=== PATIENT | female | born 1985 | race Caucasian/White ===

== ENCOUNTER 2016-09-02 10:23 | Inpatient (IN) | payer OTHER ==
[~2016-09-02 10:23] MED LIST: OXYTOCIN IN LR 500 ML IV ONE
[2016-09-02] MEDS ORDERED: LIDOCAINE 1% (PRES FREE) 30 ML VIAL ONE (11:10)
[2016-09-02] MEDS ORDERED: MINERAL OIL 25 ML BOT ONE (11:10)
[2016-09-02] MEDS ORDERED: PUMP TUBING ONE (11:10)
[2016-09-02] MEDS ORDERED: LIDOCAINE Viscous 2% 15 ML UDCUP ONE (11:10)
[2016-09-02] MEDS ORDERED: SODIUM CHLORIDE 0.9% FLUSH 10 ML ONE (11:10)
[2016-09-02] MEDS ORDERED: OXYTOCIN 10 UNITS/ML VIAL ONE (11:10)
[2016-09-02] MEDS ORDERED: IV START KIT ONE (11:10)
[2016-09-02] MEDS ORDERED: OXYTOCIN IN LR 500 ML IV ONE (11:11)
[2016-09-02] MEDS: LACTATED RINGERS 1,000 ML IV PRN ×2 (11:33→12:03)
[2016-09-02] MEDS ORDERED: EPIDURAL PUMP SET ONE (11:44)
[2016-09-02] MEDS ORDERED: FENTANYL/ROPIVACAINE EPIDURAL 250 ML EP ONE (11:45)
[2016-09-02 11:47] LABS: HEMATOCRIT 39.2 % (37.0-47.0); HEMOGLOBIN 13.3 gm/l (12.0-16.0); MEAN CELL VOLUME 87.7 fl (81.0-99.0); MEAN CORPUSCULAR HEMOGLOBIN 29.8 pg (27.0-31.0); MEAN CORPUSCULAR HGB CONC 33.9 g/dl (33.0-37.0); RED CELL DISTRIBUTION WIDTH 13.3 % (11.5-14.5)
[2016-09-02] MEDS ORDERED: EPIDURAL PROCEDURE TRAY ONE (12:24)
[2016-09-02] MEDS ORDERED: METOCLOPRAMIDE HCL 5 MG/ML 2ML VIAL IV PRN (12:30)
[2016-09-02] MEDS ORDERED: EPHEDRINE SULFATE 50 MG/ML 1ML VIAL IV PRN (12:30)
[2016-09-02] MEDS ORDERED: FENTANYL/ROPIVACAINE EPIDURAL 250 ML EP SCH (12:30)
[2016-09-02] MEDS ORDERED: ONDANSETRON 4 MG/2ML 2 ML VIAL IV PRN (12:30)
[2016-09-02] MEDS ORDERED: DIPHENHYDRAMINE HCL 50 MG/1 ML VIAL IV PRN (12:30)
[2016-09-02] MEDS ORDERED: LACTATED RINGERS 1,000 ML IV SCH (12:30)
[2016-09-02] MEDS ORDERED: NALBUPHINE HCL 20 MG/ML AMP IV PRN (12:30)
[2016-09-02] MEDS ORDERED: SODIUM CHLORIDE 0.9% 500 ML IV PRN (12:30)
[2016-09-02] MEDS ORDERED: NALOXONE HCL 0.4 MG/ML VIAL IV PRN (12:30)
[2016-09-02] MEDS ORDERED: LACTATED RINGERS 500 ML IV PRN (12:30)
[2016-09-02 13:12] VITALS: BMI 34.0
[2016-09-02] MEDS ORDERED: LIDOCAINE 1% (PRES FREE) 30 ML VIAL IF ONE (15:36)
[2016-09-02] MEDS ORDERED: MINERAL OIL 25 ML BOT TP ONE (15:36)
[2016-09-02] MEDS ORDERED: LANOLIN 50 APPLIC/7G TUBE TP PRN (16:31)
[2016-09-02] MEDS ORDERED: BENZOCAINE/MENTHOL 60 APPLIC/BOT TP PRN (16:31)
[2016-09-02] MEDS ORDERED: OXYCODONE HCL 5 MG TABLET PO PRN (16:31)
[2016-09-02] MEDS ORDERED: CALCIUM CARBONATE 500 MG TAB.CHEW PO PRN (16:31)
[2016-09-02] MEDS ORDERED: HYDROCODONE/ACETAMINOPHEN 5/325MG TABLET PO PRN (16:31)
[2016-09-02] MEDS ORDERED: MAGNESIUM HYDROXIDE 30 ML UDCUP PO PRN (16:31)
[2016-09-02] MEDS ORDERED: DOCUSATE SODIUM 100 MG CAPSULE PO PRN (16:31)
[2016-09-02] MEDS: IBUPROFEN 800 MG TABLET PO SCH ×2 (17:12→23:23)
[2016-09-03] MEDS: IBUPROFEN 800 MG TABLET PO SCH ×2 (06:39→14:22)
[2016-09-03 07:06] LABS: HEMATOCRIT 34.4 % (37.0-47.0); HEMOGLOBIN 11.4 gm/l (12.0-16.0)
--- NOTE | 2016-09-03 12:57 | PCMDEL ---
Delivery Note - Labor 1st stage (hr/min):: 1030--1522 4 hrs 52 minutes 2nd stage (hr/min):: 1522--1546 24 minutes 3rd stage (hr/min):: 1546--1558 12 minutes Total (hr/min):: 5 hours 28 minutes - Delivery Delivery (Date): 09/02/16 Delivery (Time): 15:46 Infant Gender: Male Weight: 4.7 kg Position: OA Umbilical Cord: 3 Vessel Delayed Cord Clamping:: > 3 min 1 Minute Total: 9 5 Minute Total: 9 Placenta:: normal and intact EBL:: 300mls Perineum:: 2nd degree perineal laceration Suture:: 3-0 vicryl Anesthesia/Meds:: epidural and 1% lidocaine plain x 16mls Length ROM:: 3 hours
--- NOTE | 2016-09-03 13:06 | PDOC39B ---
ADMIT DATE: 09/02/16 DISCHARGE DATE: ADMISSION DIAGNOSES: 30 yo at 39w6d, active labor DISCHARGE DIAGNOSES: 30 yo at 39w6d PROCEDURES: 2nd degree perineal repair HISTORY OF PRESENT ILLNESS: 30 year old at 39 weeks 6 days presenting with painful regular contractions. Contractions started the night before about 1130pm. Continued through the night and was found to be 4cm in the office at 8 am. She wanted to walk and returned at about 1030 and was found to be 4.5-5cm and painful contractions every 2-5 minutes. She was admitted to the hospital for anticipated delivery. She elected for an epidural and was placed and was comfortable. AROM of clear fluid and she progressed nicely to deliver a viable male infant over a 2nd degree perineal laceration without complication DELIVERY INFORMATION: Delivery Date/Time: 09/02/16 @ 15:46 Weight: 4.706 kg Totals: 1 minute , 5 minute Lacerations: 2nd degree perineal repaired Repair: 3-0 vicryl Anesthesia/Meds: Epidural and Lidocaine 1% Blood Loss: 300mls HOSPITAL COURSE: The patient did well PP without complications and was anxious to go home. By day of discharge the patient is ambulating, eating, voiding, and passing flatus without difficulty. Pain is controlled and lochia is appropriate. She is . - Physical Exam Vital Signs: Temp Pulse Resp BP Pulse Ox 97.9 F 78 18 123/60 09/03/16 03:45 09/03/16 03:45 09/03/16 03:45 09/03/16 03:45 General: Afebrile Psych/Mental Status: Mood/Affect Appropriate, Judgment/Insight Intact, Bonding Well Neurological: Grossly Intact, Alert, Oriented x 4 Lungs: Clear to Auscultation Bilaterally, Normal Air Movement Cardiovascular: Regular Rate and Rhythm, Normal S1, Normal S2, No Murmur Fundus: Firm, Below Umbilicus Abdomen: No Tenderness, No Distention Extremities: Full ROM, Edema (trace), No Cyanosis, No Tenderness Skin: Normal Color, Warm, Dry, Intact - Discharge Diagnosis (1) Spontaneous vaginal delivery Status: Acute Assessment/Plan: Doing well PPD #1 and would like to go home which I think if reasonable and we will see her back in the office with as planned (2) LGA (large for gestational age) fetus affecting mother, delivered Status: Acute (3) Perineal laceration during delivery, delivered Status: Acute - Discharge Plan Condition: Good Instruction Forms: Vaginal Discharge Instructions Prescriptions: Ibuprofen [IBUPROFEN 800 MG TABLET (SHF)] 800 mg PO Q8H #30 tablet Follow-Up: Cathryn Jo MD [Staff Physician] - In 6 weeks
[2016-09-03 14:59] VITALS: BP 134/83
== END 2016-09-03 17:10 | disposition home or self-care (01) | DRG 775 ==
LOC: FBC 10:23 → EDSTATUS 09-03 10:22
PROVIDERS: ADMIT Family Medicine; ATTEND Family Medicine
PROC: 0KQM0ZZ Repair Perineum Muscle, Open Approach (ICD-10-PCS; principal; 2016-09-02)
PROC: 10E0XZZ Delivery of Products of Conception, External Approach (ICD-10-PCS; 2016-09-02)
PROC: 10907ZC Drainage of Amniotic Fluid, Therapeutic from Products of Conception, Via Natural or Artificial Opening (ICD-10-PCS; 2016-09-02)
DX: O70.1 Second degree perineal laceration during delivery (principal); Z37.0 Single live birth; O36.63X0 Maternal care for excessive fetal growth, third trimester, not applicable or unspecified; Z3A.39 39 weeks gestation of pregnancy